=== PATIENT | female | born 1990 | race Caucasian/White ===

== ENCOUNTER 2017-11-24 18:30 | Emergency (ER) | payer SELFPAY ==
[2017-11-24] MEDS ORDERED: NS 1,000 ML IV ONE (19:13)
--- NOTE | 2017-11-24 19:17 | EDPHY ---
H & P Stated Complaint: Neck pain, L ear pain x 5days; had 2 chiropractic adjustments w/o relief Time Seen by Provider: 11/24/17 19:00 HPI/ROS: CHIEF COMPLAINT: Left lateral neck pain HISTORY OF PRESENT ILLNESS: The patient is a 27-year-old female who comes to the emergency department complaining of left lateral neck pain at the sternocleidomastoid region. She states that it began hurting about 5 days ago. No trauma. No fevers or infections. No dental pain. She states that it is gradually gotten worse each day and is now hurting her ear as well. She states that it occasionally takes her breath away but denies difficulty breathing, cough or shortness of breath. No worsening with exertion. No altered mental status. She visited a chiropractor 2 days ago and yesterday and had adjustments made with no improvement. She does not have a headache. REVIEW OF SYSTEMS: Constitutional: denies: chills, fever, recent illness, recent injury EENTM: denies: blurred vision, double vision, nose congestion Respiratory: denies: cough, shortness of breath Cardiac: denies: chest pain, irregular heart rate, lightheadedness, palpitations Gastrointestinal/Abdominal: denies: abdominal pain, diarrhea, nausea, vomiting, blood streaked stools Genitourinary: denies: dysuria, frequency, hematuria, pain Musculoskeletal: See HPI Skin: denies: lesions, rash, jaundice, bruising Neurological: See HPI denies: headache, numbness, paresthesia, tingling, dizziness, weakness Hematologic/Lymphatic: denies: blood clots, easy bleeding, easy bruising Immunologic/allergic: denies: HIV/AIDS, transplant EXAM: GENERAL: Well-appearing, well-nourished and in no acute distress. HEAD: Atraumatic, normocephalic. EYES: Pupils equal round and reactive to light, extraocular movements intact, sclera anicteric, conjunctiva are normal. ENT: TMs normal, nares patent, oropharynx clear without exudates. Moist mucous membranes. NECK: Left lateral neck pain that seems to initiate behind her left ear and radiate down words and laterally. Normal range of motion, supple without lymphadenopathy or JVD. LUNGS: Breath sounds clear to auscultation bilaterally and equal. No wheezes rales or rhonchi. HEART: Regular rate and rhythm without murmurs, rubs or gallops. ABDOMEN: Soft, nontender, normoactive bowel sounds. No guarding, no rebound. No masses appreciated. BACK: No CVA tenderness, no spinal tenderness, step-offs or deformities EXTREMITIES: Normal range of motion, no pitting or edema. No clubbing or cyanosis. NEUROLOGICAL: Cranial nerves II through XII grossly intact. Normal speech, normal gait. 5/5 strength an upper and lower extremities., normal movement in all extremities, normal sensation normal reflexes, normal cerebellar exam. Normal strength PSYCH: Normal mood, normal affect. SKIN: Warm, dry, normal turgor, no visible rashes or lesions. Source: Patient Exam Limitations: No limitations - Personal History LMP (Females 10-55): 1-7 Days Ago Current Tetanus Diphtheria and Acellular Pertussis (TDAP): Unsure - Medical/Surgical History Hx Asthma: No Hx Chronic Respiratory Disease: No Hx Diabetes: No Hx Cardiac Disease: No Hx Renal Disease: No Hx Cirrhosis: No Hx Alcoholism: No Hx HIV/AIDS: No Other PMH: healthy - Family History Significant Family History: No pertinent family hx - Social History Smoking Status: Never smoked Alcohol Use: None Constitutional: Initial Vital Signs Temperature (C) 36.8 C 11/24/17 18:31 Heart Rate 78 11/24/17 18:31 Respiratory Rate 16 11/24/17 18:31 Blood Pressure 137/93 H 11/24/17 18:31 O2 Sat (%) 98 11/24/17 18:31 O2 Delivery Mode Room Air Allergies/Adverse Reactions: No Known Allergies Allergy (Unverified 11/24/17 18:38) Home Medications: Medication Instructions Recorded Hydrocodone/APAP 5/325 [Douglas 1 - 2 tab PO Q4H PRN #10 tab 11/24/17 5/325 (RX)] Medical Decision Making - Diagnostics Imaging Results: Imaging Impressions Head CTA 11/24/17 19:14 Impression: 1. Normal CT angiogram of the neck. 2. Normal CT angiogram of the [place] [facility] [place] with normal variation, as detailed above. Note: All calculations were performed using NASCET criteria. Findings discussed with Kaiser Dominguez M.D. at 21:00 hour, 11/24/2017. Neck CTA 11/24/17 19:[address]: [address] angiogram of the neck. 2. Normal CT angiogram of the [place] [facility] [place] with normal variation, as detailed above. Note: All calculations were performed using NASCET criteria. Findings discussed with Kaiser Dominguez M.D. at 21:00 hour, 11/24/2017. Imaging: Discussed imaging studies w/ call center associate Radiologist ED Course/Re-evaluation: We discussed the CT results. The patient is very much relieved. She did not have much relief with the diazepam. Will add Toradol. Patient is feeling better. We encouraged rest and anti-inflammatories. I will also prescribe her Vicodin to use as needed but encouraged her to minimize this. We also discussed indications for returning. Differential Diagnosis: Partial list of the Differential diagnosis considered include but were not limited to; muscle strain, dissection, neuropathy and although unlikely based on the history and physical exam, I also considered fracture, infection,. I discussed these differential diagnoses and the plan with the patient as well as the usual and expected course. The patient understands that the diagnosis is provisional and that in medicine we are not always correct and that further workup is often warranted. Usual and customary warnings were given. All of the patient's questions were answered. The patient was instructed to return to the emergency department should the symptoms at all worsen or return, otherwise to followup with the physician as we discussed. - Data Points Laboratory Results: Laboratory Results 11/24/17 19:20 11/24/17 19:20 11/24/17 11/24/17 11/24/17 19:20 19:20 19:20 WBC RBC Hgb Hct MCV MCH MCHC RDW Plt Count MPV Neut % (Auto) Lymph % (Auto) Ellis % (Auto) Eos % (Auto) Baso % (Auto) Nucleat RBC Rel Count Absolute Neuts (auto) Absolute Lymphs (auto) Absolute Monos (auto) Absolute Eos (auto) Absolute Basos (auto) Absolute Nucleated RBC Immature Gran % Immature Gran # PT 13.3 SEC SEC (12.0-15.0) INR 0.99 (0.83-1.16) Sodium 142 mEq/L mEq/L (135-145) Potassium 4.0 mEq/L mEq/L (3.5-5.2) Chloride 104 mEq/L mEq/L (97-110) Carbon Dioxide 24 mEq/l mEq/l (22-31) Anion Gap 14 mEq/L mEq/L (8-16) BUN 12 mg/dL mg/dL (7-23) Creatinine 0.7 mg/dL mg/dL (0.6-1.0) Estimated GFR > 60 Glucose 92 mg/dL mg/dL (70-100) Calcium 8.7 mg/dL mg/dL (8.5-10.4) Beta HCG, Qual NEGATIVE 11/24/17 19:20 WBC 5.13 10^3/uL 10^3/uL (3.80-9.50) RBC 4.93 10^6/uL 10^6/uL (4.18-5.33) Hgb 12.3 g/dL L g/dL (12.6-16.3) Hct 39.2 % % (38.0-47.0) MCV 79.5 fL L fL (81.5-99.8) MCH 24.9 pg L pg (27.9-34.1) MCHC 31.4 g/dL L g/dL (32.4-36.7) RDW 15.3 % H % (11.5-15.2) Plt Count 207 10^3/uL 10^3/uL (150-400) MPV 10.2 fL fL (8.7-11.7) Neut % (Auto) 63.2 % % (39.3-74.2) Lymph % (Auto) 26.5 % % (15.0-45.0) Ellis % (Auto) 7.8 % % (4.5-13.0) Eos % (Auto) 1.9 % % (0.6-7.6) Baso % (Auto) 0.4 % % (0.3-1.7) Nucleat RBC Rel Count 0.0 % % (0.0-0.2) Absolute Neuts (auto) 3.24 10^3/uL 10^3/uL (1.70-6.50) Absolute Lymphs (auto) 1.36 10^3/uL 10^3/uL (1.00-3.00) Absolute Monos (auto) 0.40 10^3/uL 10^3/uL (0.30-0.80) Absolute Eos (auto) 0.10 10^3/uL 10^3/uL (0.03-0.40) Absolute Basos (auto) 0.02 10^3/uL 10^3/uL (0.02-0.10) Absolute Nucleated RBC 0.00 10^3/uL 10^3/uL (0-0.01) Immature Gran % 0.2 % % (0.0-1.1) Immature Gran # 0.01 10^3/uL 10^3/uL (0.00-0.10) PT INR Sodium Potassium Chloride Carbon Dioxide Anion Gap BUN Creatinine Estimated GFR Glucose Calcium Beta HCG, Qual Medications Given: Discontinued Medications Hydrocodone Bitart/Acetaminophen (Douglas 5/325mg Prepack#6) 1 btl TAKEHOME EDNOW ONE Stop: 11/24/17 21:26 Last Admin: 11/24/17 21:30 Dose: 1 btl Diazepam (Valium) 5 mg IVP EDNOW ONE Stop: 11/24/17 19:25 Last Admin: 11/24/17 19:37 Dose: 5 mg Sodium Chloride (Ns) 1,000 mls @ 0 mls/hr IV ONCE ONE; Wide Open PRN Reason: Protocol Stop: 11/24/17 19:14 Last Admin: 11/24/17 19:27 Dose: 1,000 mls Ketorolac Tromethamine (Toradol) 30 mg IVP EDNOW ONE Stop: 11/24/17 21:00 Last Admin: 11/24/17 21:03 Dose: 30 mg Departure - Departure Disposition: Home, Routine, Self-Care Clinical Impression: Neck muscle strain Condition: Fair Instructions: Hydrocodone/Acetaminophen (By mouth), Cervical Strain (ED) Referrals: NONE *PRIMARY CARE P,. [Primary Care Provider] - As per Instructions Dustin Lopze MD [[facility] – [place], [place] Primary Care Provider] - As per Instructions Prescriptions: Hydrocodone/APAP 5/325 [Douglas 5/325 (RX)] 1 - 2 tab PO Q4H PRN #10 tab PRN Reason: Pain, Moderate
[2017-11-24] MEDS ORDERED: IOPAMIDOL (ISOVUE 370) 100 ML BTL IV ONE (19:23)
[2017-11-24] MEDS ORDERED: DIAZEPAM 5 MG/ML 1 ML SYR IVP ONE (19:24)
[2017-11-24 19:28] LABS: PLATELET COUNT 207 10^3/uL (150-400)
[2017-11-24 19:39] LABS: INR 0.99 (0.83-1.16); PROTIME(PATIENT) 13.3 SEC (12.0-15.0)
[2017-11-24] MEDS ORDERED: KETOROLAC 30 MG/1 ML SDV IVP ONE (20:59)
[2017-11-24] MEDS ORDERED: KETOROLAC 30 MG/1 ML SDV ONE (21:00)
[2017-11-24] MEDS ORDERED: HYDROCOD/APAP 5/325 PREPACK#6 BTL TAKEHOME ONE (21:25)
[2017-11-24 21:32] VITALS: BP 128/77
== END 2017-11-24 21:31 | disposition home or self-care (01) ==
DX: S16.1XXA Strain of muscle, fascia and tendon at neck level, initial encounter (principal); E86.9 Volume depletion, unspecified; X58.XXXA Exposure to other specified factors, initial encounter
CPT/HCPCS: 96374; J1885; J3360; Q9967